=== PATIENT | male | born 2000 | race Caucasian/White ===

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

== ENCOUNTER 2022-04-27 21:11 | Emergency (ER) | payer BC, OTHER ==
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
[2022-04-28 00:05] VITALS: BP 124/62
== END 2022-04-28 00:04 | disposition home or self-care (01) ==
LOC: ED 21:11
DX: S61.211A Laceration without foreign body of left index finger without damage to nail, initial encounter (principal); W27.0XXA Contact with workbench tool, initial encounter; Y93.89 Activity, other specified
CPT/HCPCS: 12001; 99281

== ENCOUNTER 2024-01-18 08:00 | Outpatient (CLI) | payer MEDICAID ==
[2024-01-18 19:55] LABS: BASOPHILS # (AUTO) 0.1 10^3/uL (0.0-0.1); EOSINOPHILS # (AUTO) 0.2 10^3/uL (0.0-0.7); EOSINOPHILS % (AUTO) 4.4 %; HCT - HEMATOCRIT 42.8 % (42.0-52.0); HGB - HEMOGLOBIN 14.7 g/dL (14.0-18.0); LYMPHOCYTES # (AUTO) 1.9 10^3/uL (1.5-3.5); LYMPHOCYTES % (AUTO) 39.2 %; MEAN CORPUSCULAR HEMOGLOBIN 30.2 pg (27.0-31.0); MEAN CORPUSCULAR HGB CONC 34.3 g/dL (32.0-36.0); MEAN CORPUSCULAR VOLUME 87.9 fL (80.0-94.0); MEAN PLATELET VOLUME 12.8 fL (7.4-11.4); MONOCYTES # (AUTO) 0.3 10^3/uL (0.0-1.0); MONOCYTES % (AUTO) 6.5 %; NEUTROPHILS # (AUTO) 2.3 10^3/uL (1.5-6.6); NEUTROPHILS % (AUTO) 48.7 %; PLT - PLATELET COUNT 184 10^3/uL (130-450); RED BLOOD COUNT 4.87 10^6/uL (4.70-6.10); RED CELL DISTRIBUTION WIDTH 12.3 % (12.0-15.0); WHITE BLOOD COUNT 4.8 x10^3/uL (4.8-10.8)
[2024-01-18 20:32] LABS: ALBUMIN 4.7 g/dL (3.2-5.5); BILIRUBIN,TOTAL 1.7 mg/dL (0.2-1.0); CREATININE 0.9 mg/dL (0.6-1.3); POTASSIUM 4.6 mmol/L (3.5-4.5)
== END 2024-01-18 23:59 | disposition home or self-care (01) ==
LOC: LAB.N 08:00
PROVIDERS: ATTEND Physician Assistant Medical
DX: K30 Functional dyspepsia (principal)
CPT/HCPCS: 36415; 80053; 83690; 85025

== ENCOUNTER 2024-01-19 12:00 | Emergency (ER) | payer MEDICAID ==
[2024-01-19 12:16] VITALS: BP 130/80; O2SAT 99
--- NOTE | 2024-01-19 12:21 | ED Physician Documentation ---
History of Present Illness - Stated complaint Stated Complaint: RT INDEX FINGER INJ - Chief complaint Chief Complaint: Trauma Ext - History obtained from History obtained from: Patient - History of Present Illness Timing: Today Pain level max: 8 Pain level now: 3 - Additonal information Additional information: 23-year-old right-handed male presents to the emergency department stating that his right index finger was crushed in a truck tailgate when he was cleaning out a. He states that the finger is not hurting as much now. He complains with swelling to the finger. He has full range of motion of the finger. No gross deformity. No numbness or tingling. Not on blood thinners. Review of Systems Constitutional: denies: Fever PD PAST MEDICAL HISTORY - Past Medical History Cardiovascular: None Respiratory: None Neuro: None Endocrine/Autoimmune: None GI: GERD : None HEENT: None Psych: None Musculoskeletal: None Derm: None - Past Surgical History Past Surgical History: Yes HEENT: Tonsil/Adenoidectomy - Present Medications Home Medications: Ambulatory Orders Medication Instructions Recorded Confirmed No Known Home Medications 04/27/22 04/27/22 - Allergies Allergies/Adverse Reactions: Allergies Allergy/AdvReac Type Severity Reaction Status Date / Time No Known Drug Allergies Allergy Verified 01/19/24 12:08 - Social History Does the pt smoke?: No Smoking Status: Never smoker Does the pt drink ETOH?: No Does the pt have substance abuse?: No - Immunizations Immunizations are current?: Yes - POLST Patient has POLST: No PD ED PE NORMAL - Vitals Vital signs reviewed: Yes - General General: Alert and oriented X 3, No acute distress - Derm Derm: Warm and dry - Extremities Extremities: Other (R hand - There is mild swelling to the index finger with a small abrasion on the dorsum of the finger. Neurovascular intact. No bony tenderness. No deformity. Full range of motion of the finger though does have some pain. Otherwise normal examination of the right hand and wrist.) - Neuro Neuro: Alert and oriented X 3 Results - Vitals Vitals: Vital Signs - 24 hr 01/19/24 12:08 Temperature 36.7 C Heart Rate 76 Respiratory 16 Rate Blood Pressure 130/80 O2 Saturation 99 Oxygen O2 Source Room air - Rads (name of study) R index finger xray Relevant Findings:: Final report received, See rad report PD Medical Decision Making - ED course Complexity details: reviewed results, re-evaluated patient, considered differential, d/w patient ED course: No acute findings on x-ray of the right index finger. Placed in a splint for comfort. Can use Motrin Tylenol as needed at home. No evidence of ligamentous or tendon injury. Neurovascular intact. Patient counseled regarding signs and symptoms for which I believe and urgent re-evaluation would be necessary. Patient with good understanding of and agreement to plan and is comfortable going home at this time This document was made in part using voice recognition software. While efforts are made to proofread this document, sound alike and grammatical errors may occur. Departure - Departure Disposition: 01 Home, Self Care Clinical Impression: Crushed finger Qualifiers: Encounter type: initial encounter Qualified Code(s): S67.10XA - Crushing injury of unspecified finger(s), initial encounter Condition: Good Instructions: ED Sprain Finger Follow-Up: your,doctor in 1 week [Other] Comments: Your x-ray does not show any evidence of fracture or dislocation. You can wear the finger splint as needed for comfort. You can use Motrin or Tylenol for any pain. Please follow-up with your doctor in 1 week if you are still having symptoms. Forms: PCP List
--- NOTE | 2024-01-19 12:32 | XRAY Report ---
PROCEDURE: Finger(s) RT INDICATIONS: index finger crush injury TECHNIQUE: AP hand, 2 views of the index finger(s) acquired. COMPARISON: None. FINDINGS: Bones: No fractures or dislocations. No suspicious bony lesions. Soft tissues: No suspicious soft tissue calcifications or masses. IMPRESSION: No acute bony abnormality. Reviewed by: Amrit Mondragon MD on 01/19/2024 11:30 AM [facility] Approved by: Amrit Mondragon MD on 01/19/2024 11:30 AM [facility] Station ID: [id number]
== END 2024-01-19 12:51 | disposition home or self-care (01) ==
LOC: ED 12:00
DX: S60.410A Abrasion of right index finger, initial encounter (principal); S67.190A Crushing injury of right index finger, initial encounter; W23.1XXA Caught, crushed, jammed, or pinched between stationary objects, initial encounter; Y93.89 Activity, other specified
CPT/HCPCS: 99283

== ENCOUNTER 2024-02-27 08:07 | Emergency (ER) | payer MEDICAID ==
[2024-02-27 08:29] VITALS: BP 142/61; O2SAT 98
--- NOTE | 2024-02-27 08:39 | ED Physician Documentation ---
PD HPI DYSPNEA - Stated complaint Stated Complaint: SOA - Chief complaint Chief Complaint: Resp - History obtained from History obtained from: Patient - Additional information Additional information: Patient is a 23-year-old male with no significant past medical history presenting for evaluation of feeling short of air as he is going to sleep at night which has been ongoing for the past 1 week. Patient states that when he is going to bed at night he feels short of breath like he is suffocating. He said last night it lasted for about an hour and he felt some tightness in his chest. He is then able to go to sleep and sleeps through the night without waking for feeling short of air. He states that during the daytime he does not feel this way. He does not have a cough or congestion or fevers. 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 He does vape. No history of asthma. No history of PE, DVT, recent travel or immobilization. No leg swelling or pain. Last night he did report eating something that was spicy or at dinner but states this was around 8:00 and he goes to bed closer to 10:00. Review of Systems Constitutional: denies: Fever Cardiac: denies: Palpitations Respiratory: reports: Dyspnea GI: denies: Vomiting, Diarrhea Musculoskeletal: denies: Extremity swelling PD PAST MEDICAL HISTORY - Past Medical History Cardiovascular: None Respiratory: None Neuro: None Endocrine/Autoimmune: None GI: GERD : None HEENT: None Psych: None Musculoskeletal: None Derm: None - Past Surgical History Past Surgical History: Yes HEENT: Tonsil/Adenoidectomy - Present Medications Home Medications: Ambulatory Orders Medication Instructions Recorded Confirmed No Known Home Medications 04/27/22 04/27/22 - Allergies Allergies/Adverse Reactions: Allergies Allergy/AdvReac Type Severity Reaction Status Date / Time No Known Drug Allergies Allergy Verified 01/19/24 12:08 - Social History Does the pt smoke?: No Smoking Status: Never smoker Does the pt drink ETOH?: No Does the pt have substance abuse?: No - Immunizations Immunizations are current?: Yes - POLST Patient has POLST: No PD ED PE NORMAL - General General: Alert and oriented X 3, No acute distress, Well developed/nourished - HEENT HEENT: Atraumatic - Neck Neck: Supple, no meningeal sign - Cardiac Cardiac: RRR, Strong equal pulses - Respiratory Respiratory: No respiratory distress, Clear bilaterally - Abdomen Abdomen: Soft, Non tender, Non distended - Derm Derm: Warm and dry - Extremities Extremities: No edema, No calf tenderness / cord - Neuro Neuro: Normal speech Results - Vitals Vitals: Vital Signs - 24 hr 02/27/24 08:18 Temperature 37.2 C Heart Rate 56 L Respiratory 18 Rate Blood Pressure 142/61 H O2 Saturation 98 Oxygen O2 Source Room air - EKG (time done) 0851 EKG releavant findings:: EKG personally interpreted by author of this note. Relevant findings are: Rate 50, sinus bradycardia, no STEMI, QTc 395 PD Medical Decision Making - ED course Complexity details: reviewed results, d/w patient ED course: Patient is a 23-year-old male without significant medical history presenting for episodes of shortness of air that occur as he is trying to sleep at night. Vital signs are stable and lung sounds are clear. No symptoms currently and symptoms do not seem to occur during the day thus I do not feel like anemia or electrolyte issues would be the cause. X-ray was obtained which I reviewed I see normal heart size with clear lungs. EKG demonstrates a sinus rhythm. Patient was encouraged to quit vaping and also instructed on following up with his primary care. Advised on concerning symptoms to return for. Departure - Departure Disposition: 01 Home, Self Care Clinical Impression: SOB (shortness of breath) Condition: Stable Instructions: ED Dyspnea Shortness of Breath Comments: At this time the cause for your shortness of breath is unclear. Your chest x- ray is clear and your EKG does not show any abnormalities. I would recommend close follow-up with your primary care doctor regarding these episodes. In the meanwhile I would recommend you stop vaping as well as also keep an eye on anything you are eating close to dinnertime and avoiding anything that may trigger acid reflux symptoms such as spicy, acidic, citrusy foods. Return to the emergency department if you develop any worsening symptoms. Forms: PCP List Discharge Date/Time: 02/27/24 09:03
--- NOTE | 2024-02-27 09:12 | XRAY Report ---
PROCEDURE: Chest 2V INDICATIONS: SOA TECHNIQUE: 2 views of the chest were acquired. COMPARISON: CXR 07/23/2023. FINDINGS: Surgical changes and devices: None. Lungs and pleura: No pleural effusions or pneumothorax. Lungs are clear. Mediastinum: Mediastinal contours appear normal. Heart size is normal. Bones and chest wall: No suspicious bony lesions. Overlying soft tissues appear unremarkable. IMPRESSION: No acute cardiopulmonary process. Reviewed by: Gordy Johnston MD on 02/27/2024 9:11 AM PDT Approved by: Gordy Johnston MD on 02/27/2024 9:11 AM PDT Station ID: [id number]
== END 2024-02-27 09:03 | disposition home or self-care (01) ==
LOC: ED 08:07
DX: R06.02 Shortness of breath (principal)
CPT/HCPCS: 93005; 99283